=== PATIENT | female | born 1995 | race Hispanic/Latino ===

== ENCOUNTER 2018-02-12 16:50 | Emergency (ER) | payer BC ==
[~2018-02-12] VITALS: Ht 152.4 cm; Wt 53.1 kg
--- NOTE | 2018-02-12 17:51 | Diagnostic Imaging Report ---
Left shoulder 3 - views HISTORY: Pain status post trauma. COMPARISON: None FINDINGS: No displaced fracture. Osseous alignment is within normal limits. The joint spaces are well-maintained. The soft tissues appear unremarkable. IMPRESSION: No acute osseous abnormality. Signed by: Dr. Ruth Norman M.D. on 02/12/2018 5:48 PM
[2018-02-12 18:19] VITALS: BP 118/62
== END 2018-02-12 18:29 | disposition home or self-care (01) ==
LOC: FSED 16:50
DX: S43.52XA Sprain of left acromioclavicular joint, initial encounter (principal); Y93.B9 Activity, other involving muscle strengthening exercises; Y92.39 Other specified sports and athletic area as the place of occurrence of the external cause
CPT/HCPCS: 81025; 99283

== ENCOUNTER 2024-11-17 13:23 | Emergency (ER) | payer BC ==
[~2024-11-17] VITALS: Ht 152.4 cm; Wt 67.2 kg
[~2024-11-17 13:23] MED LIST: MACROBID 100 M100 MG PO; PYRIDIUM200 MG PO
[2024-11-17 13:45] VITALS: PULSE 70; RESP 18; TEMP 98.4; O2SAT 97
== END 2024-11-17 14:15 | disposition home or self-care (01) ==
LOC: FSED 13:47
DX: J04.0 Acute laryngitis (principal)
CPT/HCPCS: 83518; 99284